=== PATIENT | male | born 1960 | race Caucasian/White ===

== ENCOUNTER 2017-04-16 15:35 | Inpatient (IN) | payer BC ==
[~2017-04-16] VITALS: Ht 180.3 cm; Wt 82.3 kg
[~2017-04-16 15:35] MED LIST: ACET325T45 PO; DOCU-159 PO; HYDR-3498 PO; IBUP-1542 PO; KETO10TA PO; TAMS-14 PO
[2017-04-16 16:00] VITALS: PULSE 66
[2017-04-16 16:12] VITALS: BP 149/101; RESP 18
[2017-04-16 16:15] VITALS: Ht 180.3 cm; Wt 82.3 kg
[2017-04-16] MEDS ORDERED: NACL 0.9% 3 ML SYG IV SCH (18:30)
[2017-04-16] MEDS ORDERED: ACETAMINOPHEN 325 MG TAB PO PRN (18:30)
[2017-04-16] MEDS ORDERED: IBUPROFEN 400 MG TAB PO PRN (19:30)
--- NOTE | 2017-04-16 19:32 | HP ---
Date/Time of Note Date/Time of Note DATE: 04/16/17 TIME: 19:18 Assessment/Plan VTE Prophylaxis VTE Prophylaxis Intervention: SCD's Lines/Catheters IV Catheter Type (from Nrs): Saline Lock Urinary Cath still in place: No Assessment/Plan Assessment/Plan 56 yo M presenting with 1 week of c/o headaches, generalized weakness (though no weakness on exam), dizziness. Workup at OSH ER unremarkable. D/dx includes viral syndrome v ear mediated process (?labyrinthitis?) v central process. PLAN MRI brain, MRA neck to eval for primary brain process consider LP if above nondiagnostic NSAIDs prn headache cont home flomax for BPH general diet check orthostatics cont tele SCDs/SQH HPI/ROS Admit Date/Time Admit Date/Time Apr 16, 2017 at 15:35 Hx of Present Illness 56 yo M with pmhx chronic back pain, R sided tinitus, h/o abd hernia presents with c/o 1 week of dizziness, generalized weakness, slowed thoughts. Pt reports symptoms came on gradually and have been progressively worsening. Over this interval has also noted occ jaw pain. Pt denies any fevers, chills, nausea, vomitting, constipation, night sweats, weight changes, or diarrhea. Reports that he's also been having bilateral frontal headaches. Has tried APAP at home to little avail. Reports symptoms are worsened with positional changes. Regarding the jaw pain pt localizes it mostly to his TMJs bl, and reports that sometimes the pain is associated with a strange taste in his mouth. Does not endorse vision changes. Pt also reports 4 years of R ear tinnitus with recent worsening ROS 10pROS neg except as per HPI PMH/Family/Social Past Medical History abd hernia BPH h/o kidney stone chronic back pain ?chronic bronchitis Social History Smoking Status: Current every day smoker Exam/Review of Systems Vital Signs Vitals Vital Signs Date Time Temp Pulse Resp B/P Pulse Ox O2 Delivery O2 Flow Rate FiO2 04/16/17 16:12 97.4 76 18 149/101 95 Exam Exam nad, laying in bed CN 2-12 intact bl 5/5 strength bl U and LEs, sensorium grossly intact, FNF nl bl MMM EOMI rrr no mrg abd soft lungs clear no le edema no rashes no nystagmus [place] Hallpike negative Medications Medications Current Medications Heparin Sodium (Porcine) (Heparin (5000 Units/0.5 ml)) 5,000 unit Q8 SC ; Start 04/16/17 at 22:00 Acetaminophen (Tylenol Tab) 325 mg Q4H PRN PO PAIN AND OR ELEVATED TEMP; Start 04/16/17 at 18:30 Docusate Sodium (Colace) 100 mg BID PO ; Start 04/16/17 at 21:00 Tamsulosin HCl (Flomax) 0.4 mg HS PO ; Start 04/16/17 at 21:00 Procedures Procedures OSH studies NCCT head: mp omtracranial process, +acute v chronic L mastoiditis EKG: NSR, rate 71 CXR nl CBC 6.7>15.3/43.8<276 INR 1.0 ChemP notable for glucose 107, Cr 0.9, TB 1.4, transaminases nl trop neg UA neg GAIL COLLIER MD Apr 16, 2017 19:28
[2017-04-16 20:00] VITALS: BP 169/97; RESP 20
[2017-04-16 20:11] VITALS: PULSE 66
[2017-04-16] MEDS: DOCUSATE SODIUM 100 MG CAP PO SCH (21:00)
[2017-04-16] MEDS: TAMSULOSIN (SR) 0.4 MG CAP PO SCH (21:00)
[2017-04-16] MEDS: HEPARIN 5,000 UNIT/0.5 ML VIAL SC SCH (21:56)
[2017-04-16] MEDS: ZOLPIDEM 5 MG TAB PO PRN (22:26)
[2017-04-17] VITALS (12 sets, daily range): BP systolic 124–150; BP diastolic 74–90; PULSE 59–91; RESP 15–20
[2017-04-17] MEDS: HEPARIN 5,000 UNIT/0.5 ML VIAL SC SCH ×3 (06:34→23:16)
[2017-04-17] MEDS: DOCUSATE SODIUM 100 MG CAP PO SCH ×2 (09:00→20:30)
--- NOTE | 2017-04-17 13:11 | PN ---
Date/Time of Note Date/Time of Note DATE: 04/17/17 TIME: 13:10 Assessment/Plan VTE Prophylaxis VTE Prophylaxis Intervention: SCD's Lines/Catheters IV Catheter Type (from [facility]): Saline Lock Urinary Cath still in place: No Assessment/Plan Assessment/Plan 56 yo M presenting with 1 week of c/o headaches, generalized weakness (though no weakness on exam), dizziness. Workup at OSH ER unremarkable. D/dx includes viral syndrome v ear mediated process (?labyrinthitis?) v central process. PLAN MRI brain, MRA neck to eval for primary brain process consider LP if above nondiagnostic NSAIDs prn headache cont home flomax for BPH general diet check orthostatics cont tele SCDs/SQH Subjective 24 Hr Interval Summary Free Text/Dictation Pt reports symptoms are unchanged. Exam/Review of Systems Vital Signs Vitals Vital Signs Date Time Temp Pulse Resp B/P Pulse Ox O2 Delivery O2 Flow Rate FiO2 04/17/17 12:18 68 04/17/17 11:23 98.5 18 131/85 97 Intake and Output 04/16/17 04/16/17 04/17/17 15:00 23:00 07:00 Intake Total 600 ml Balance 600 ml Exam nad laying in bed no mrg lungs clear abd soft no rashes Medications Medications Current Medications Heparin Sodium (Porcine) (Heparin (5000 Units/0.5 ml)) 5,000 unit Q8 SC Last administered on 04/17/17 06:34; Admin Dose 5,000 UNIT; Start 04/16/17 at 22:00 Acetaminophen (Tylenol Tab) 325 mg Q4H PRN PO PAIN AND OR ELEVATED TEMP; Start 04/16/17 at 18:30 Docusate Sodium (Colace) 100 mg BID PO ; Start 04/16/17 at 21:00 Tamsulosin HCl (Flomax) 0.4 mg HS PO ; Start 04/16/17 at 21:00 Ibuprofen (Motrin) 400 mg Q6H PRN PO PAIN OR TEMP ABOVE 38C Last administered on 04/16/17 19:53; Admin Dose 400 MG; Start 04/16/17 at 19:30 Zolpidem Tartrate (Ambien) 5 mg HS PRN PO INSOMNIA Last administered on 22:26; Admin Dose 5 MG; Start 04/16/17 at 22:00 GAIL COLILER MD Apr 17, 2017 13:11
[2017-04-17 15:34] LABS: CALCIUM 9.3 mg/dl (8.4-10.2); CREATININE 1.05 mg/dl (0.61-1.24); POTASSIUM 4.4 mmol/L (3.5-5.1)
[2017-04-17] MEDS: TAMSULOSIN (SR) 0.4 MG CAP PO SCH (20:31)
[2017-04-17] MEDS: ZOLPIDEM 5 MG TAB PO PRN (23:16)
[2017-04-18] VITALS (8 sets, daily range): BP systolic 128–139; BP diastolic 65–93; PULSE 59–68; RESP 15–20
[2017-04-18] MEDS: HEPARIN 5,000 UNIT/0.5 ML VIAL SC SCH ×3 (05:29→21:01)
[2017-04-18] MEDS ORDERED: ONDANSETRON 4 MG INJ IV PRN (07:00)
[2017-04-18] MEDS: DOCUSATE SODIUM 100 MG CAP PO SCH ×2 (08:44→20:59)
--- NOTE | 2017-04-18 09:36 | RADRPT ---
PROCEDURE: MR Brain with and without contrast. CLINICAL INDICATION: Vertigo COMPARISON: None TECHNIQUE: An MRI of the brain was performed on a GE short bore high-definition 1.5 ning scanner utilizing the following sequences: Sagittal T1 weighted, axial T2 weighted, axial FLAIR, coronal GRE , and axial diffusion weighted with ADC mapping. Additionally, postcontrast axial T1 3-D SPGR, axial and coronal T1-weighted sequences were performed after 10 cc of Magnevist were given intravenously without complication. FINDINGS: No diffusion weighted abnormalities are seen to suggest the presence of acute ischemia or recent inf arct. There is no intracranial hemorrhage, mass effect, or midline shift. No extra-axial fluid col lection is seen. The ventricles and sulci are normal in size and configuration. Scattered small fo ci of increased T2 weighted/FLAIR signal intensity are seen in the deep and subcortical white matter , nonspecific in appearance. The signal intensity is normal in the brain stem and cerebellum. Norm al flow voids are visible in the proximal intracranial arteries and dural sinuses, indicating patenc y. The postcontrast images show no abnormal parenchymal, leptomeningeal, or dural enhancement. The paranasal sinuses are grossly clear. IMPRESSION: 1. No evidence of acute intracranial pathology. 2. Scattered foci of increased T2 weighted/FLAIR signal intensity in the deep and subcortical white matter, nonspecific in appearance though perhaps reflective of complicated migraines, hypertensive microvascular ischemic disease, sequela from prior traumatic or inflammatory insults. RPTAT: BB .Suzanne Holden MD, Date Time Electronically viewed and signed by .Suzanne Holden MD, MD on 04/18/2017 09:35 .O/
--- NOTE | 2017-04-18 09:45 | RADRPT ---
PROCEDURE: MRA Neck with and without contrast. CLINICAL INDICATION: Vertigo TECHNIQUE: An MRA of the major cervical arteries was performed on the high ning scanner utilizing axial 2D time of flight, 3-D [id number] through the carotid bifurcations, and dynamic contrast enhanced 3-D MR angiography technique. Source and MIPPED images were reviewed. 10 cc of Magnevist w ere given intravenously without complication. COMPARISON: No prior studies are available for comparison. FINDINGS: The origins of the great vessels off the aortic arch are patent and normal in caliber. The common c arotid arteries are patent and normal in caliber. The carotid bulbs appear normal, and no hemodynam ically significant stenosis is evident within either internal carotid artery. The vertebral arterie s are patent and normal in caliber bilaterally. There is no evidence of vascular stenosis or occlus ion. IMPRESSION: Normal contrast enhanced MRA of the neck. RPTAT: BB .Suzanne Holden MD, MD Date Time Electronically viewed and signed by .Suzanne Holden MD, on 04/18/2017 09:45 .O/
[2017-04-18] MEDS ORDERED: LORAZEPAM 1 MG TAB PO SCH (12:00)
[2017-04-18] MEDS: MECLIZINE 25 MG TAB PO SCH ×2 (12:21→21:00)
[2017-04-18] MEDS: traMADol 50 MG TAB PO PRN ×2 (12:23→19:23)
--- NOTE | 2017-04-18 12:28 | PN ---
Date/Time of Note Date/Time of Note DATE: 04/18/17 TIME: 12:27 Assessment/Plan VTE Prophylaxis VTE Prophylaxis Intervention: SCD's Lines/Catheters IV Catheter Type (from Nrs): Saline Lock Urinary Cath still in place: No Assessment/Plan Assessment/Plan 56 yo M presenting with 1 week of c/o headaches, generalized weakness (though no weakness on exam), dizziness. Given floridly + [place] Hallpike with OT, most likely etio is BPPV. PLAN neurology on consult. OT to ask for CM help for outpatient Epleys NSAIDs prn headache cont home flomax for BPH general diet discontinue tele SCDs/SQH Subjective 24 Hr Interval Summary Free Text/Dictation I saw pt just after he was seen by OT. OT did formal [place]onna Hallpike testing and reports pt's test results were floridly positive. Pt quite anxious and still with many questions. Exam/Review of Systems Vital Signs Vitals Vital Signs Date Time Temp Pulse Resp B/P Pulse Ox O2 Delivery O2 Flow Rate FiO2 04/18/17 11:43 97.7 79 20 139/87 97 Intake and Output 04/17/17 04/17/17 04/18/17 15:00 23:00 07:00 Intake Total 1050 ml 600 ml Balance 1050 ml 600 ml Exam anxious, laying in bed no mrg lungs clear abd soft no rashes Neuroimaging reviewed. No masses or strokes, +microvascular changes Results Result Diagram: 04/17/17 1445 Results 24 hrs Laboratory Tests Test 04/17/17 14:45 Sodium Level 140 Potassium Level 4.4 Chloride Level 104 Carbon Dioxide Level 30 Anion Gap 10 Blood Urea Nitrogen 15 Creatinine 1.05 Glucose Level 96 Calcium Level 9.3 Medications Medications Current Medications Heparin Sodium (Porcine) (Heparin (5000 Units/0.5 ml)) 5,000 unit Q8 SC Last administered on 04/18/17 05:29; Admin Dose 5,000 UNIT; Start 04/16/17 at 22:00 Acetaminophen (Tylenol Tab) 325 mg Q4H PRN PO PAIN AND OR ELEVATED TEMP Last administered on 04/18/17 08:44; Admin Dose 325 MG; Start 04/16/17 at 18:30 Docusate Sodium (Colace) 100 mg BID PO Last administered on 04/18/17 08:44; Admin Dose 100 MG; Start 04/16/17 at 21:00 Tamsulosin HCl (Flomax) 0.4 mg HS PO ; Start 04/16/17 at 21:00 Ibuprofen (Motrin) 400 mg Q6H PRN PO PAIN OR TEMP ABOVE 38C Last administered on 04/16/17 19:53; Admin Dose 400 MG; Start 04/16/17 at 19:30 Zolpidem Tartrate (Ambien) 5 mg HS PRN PO INSOMNIA Last administered on 23:16; Admin Dose 5 MG; Start 04/16/17 at 22:00 Ondansetron HCl (Zofran Inj) 4 mg Q4H PRN IV NAUSEA AND/OR VOMITING; Start at 07:00 Meclizine HCl (Antivert) 25 mg TID PO Last administered on 04/18/17 12:21; Admin Dose 25 MG; Start 04/18/17 at 13:00 Lorazepam (Ativan) 2 mg OC PO ; Start 04/18/17 at 12:00; Stop 04/18/17 at 18:00 Tramadol HCl (Ultram) 50 mg TID PRN PO HEADACHE Last administered on 04/18/17 12:23; Admin Dose 50 MG; Start 04/18/17 at 12:00 GAIL COLLIER MD Apr 18, 2017 12:28
[2017-04-18] MEDS ORDERED: MECLIZINE 12.5 MG TAB PO SCH (13:00)
--- NOTE | 2017-04-18 17:59 | CONS ---
Date/Time of Note Date/Time of Note DATE: 04/18/17 TIME: 17:53 Assessment/Plan Assessment/Plan Chief Complaint/Hosp Course 56 yo male with history of chronic right ear tinnitus, p/w vertigo severe dizziness + Deonna-Hallpike suggestive of BPPV. Recommendations; reorder MRI w contrast to rule out possibility of schwannoma given right ear hearing loss chronic symptoms MRA Head without contrast to rule out possible dural venous fistula that may present with these symptoms increased Meclizine to standing 25 mg 8h encouraged hydration smoking cessation cleared by PT/OT outpatient OT and vestibular balance therapy if imaging negative may be discharged with meclizine and outpatient neurology follow up Problems: Consultation Date/Type/Reason Admit Date/Time Apr 16, 2017 at 15:35 Date of Consultation: Apr 18, 2017 Type of Consultation: Neurology Reason for Consultation vertigo Referring Provider: GAIL COLLIER MD Hx of Present Illness 56 yo male with history of active smoker 1/2 PPD, chronic tinnitus right ear p/ w c/o headaches, generalized weakness, jaw pain with dizziness intermittent worse with positional changes. MRI Brain and MRA Neck was negative for any acute processes. He describes worsening of sx over the past week, evaluated by OT with + [place]-Halpike maneuver. He denies any recent fevers or illness. 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, DTR's symmetric, nl mental status, nl speech, nl strength Results Result Diagram: 04/17/17 1445 Medications Medications Current Medications Heparin Sodium (Porcine) (Heparin (5000 Units/0.5 ml)) 5,000 unit Q8 SC Last administered on 04/18/17t 05:29; Admin Dose 5,000 UNIT; Start 04/16/17 at 22:00 Acetaminophen (Tylenol Tab) 325 mg Q4H PRN PO PAIN AND OR ELEVATED TEMP Last administered on 04/18/17 08:44; Admin Dose 325 MG; Start 04/16/17 at 18:30 Docusate Sodium (Colace) 100 mg BID PO Last administered on 04/18/17 08:44; Admin Dose 100 MG; Start 04/16/17 at 21:00 Tamsulosin HCl (Flomax) 0.4 mg HS PO ; Start 04/16/17 at 21:00 Ibuprofen (Motrin) 400 mg Q6H PRN PO PAIN OR TEMP ABOVE 38C Last administered on 04/16/17 19:53; Admin Dose 400 MG; Start 04/16/17 at 19:30 Zolpidem Tartrate (Ambien) 5 mg HS PRN PO INSOMNIA Last administered on 23:16; Admin Dose 5 MG; Start 04/16/17 at 22:00 Ondansetron HCl (Zofran Inj) 4 mg Q4H PRN IV NAUSEA AND/OR VOMITING; Start at 07:00 Meclizine HCl (Antivert) 25 mg TID PO Last administered on 04/18/17 12:21; Admin Dose 25 MG; Start 04/18/17 at 13:00 Lorazepam (Ativan) 2 mg OC PO ; Start 04/18/17 at 12:00; Stop 04/18/17 at 18:00 Tramadol HCl (Ultram) 50 mg TID PRN PO HEADACHE Last administered on 04/18/17 12:23; Admin Dose 50 MG; Start 04/18/17 at 12:00 MC POLLOCK MD Apr 18, 2017 17:59
[2017-04-18] MEDS: TAMSULOSIN (SR) 0.4 MG CAP PO SCH (21:00)
[2017-04-19] VITALS (7 sets, daily range): BP systolic 136–179; BP diastolic 78–115; RESP 18–20
[2017-04-19] MEDS ORDERED: PANTOPRAZOLE (EC) 40 MG TAB PO ONE (02:00)
[2017-04-19] MEDS ORDERED: AL HYDROX/MG HYDROX/SIMETH 30 ML CUP PO PRN (02:00)
[2017-04-19] MEDS: traMADol 50 MG TAB PO PRN (05:03)
[2017-04-19] MEDS ORDERED: PANTOPRAZOLE (EC) 40 MG TAB PO SCH (06:00)
[2017-04-19] MEDS: HEPARIN 5,000 UNIT/0.5 ML VIAL SC SCH (06:00)
[2017-04-19] MEDS ORDERED: LORAZEPAM 1 MG TAB PO SCH (06:00)
[2017-04-19] MEDS: MECLIZINE 25 MG TAB PO SCH ×3 (09:41→21:09)
[2017-04-19] MEDS: DOCUSATE SODIUM 100 MG CAP PO SCH ×2 (09:41→21:08)
--- NOTE | 2017-04-19 10:15 | PN ---
Date/Time of Note Date/Time of Note DATE: 04/19/17 TIME: 10:15 Assessment/Plan VTE Prophylaxis VTE Prophylaxis Intervention: SCD's Lines/Catheters IV Catheter Type (from Nrs): Saline Lock Urinary Cath still in place: No Assessment/Plan Assessment/Plan 56 yo M presenting with 1 week of c/o headaches, generalized weakness (though no weakness on exam), dizziness. Given floridly + [place] Hallpike with OT, most likely etio is BPPV. PLAN neurology on consult. will provide referral for outpatient PT/OT for Eplseys at discharge stopped home flomax per pt request general diet discontinue tele pt refusing SQH, risk of DVT dw pt will discharge home once f/u neuroimaging returns normal cont meclizine Subjective 24 Hr Interval Summary Free Text/Dictation Lots of questions about his medications Exam/Review of Systems Vital Signs Vitals Vital Signs Date Time Temp Pulse Resp B/P Pulse Ox O2 Delivery O2 Flow Rate FiO2 04/19/17 10:09 73 20 149/91 04/19/17 09:09 98.1 98 Intake and Output 04/18/17 04/18/17 04/19/17 15:00 23:00 07:00 Intake Total 1800 ml Balance 1800 ml Exam nad, very talkative laying in bed no mrg lungs clear abd soft no le edema Results Result Diagram: 04/17/17 1445 Medications Medications Current Medications Docusate Sodium (Colace) 100 mg BID PO Last administered on 04/19/17 09:41; Admin Dose 100 MG; Start 04/16/17 at 21:00 Meclizine HCl (Antivert) 25 mg TID PO Last administered on 04/19/17 09:41; Admin Dose 25 MG; Start 04/18/17 at 13:00 Tramadol HCl (Ultram) 50 mg TID PRN PO HEADACHE Last administered on 04/19/17 05:03; Admin Dose 50 MG; Start 04/18/17 at 12:00 Lorazepam (Ativan) 2 mg OC PO ; Start 04/19/17 at 06:00; Stop 04/19/17 at 22:00 GAIL COLLIER MD Apr 19, 2017 10:15
[2017-04-20 07:42] VITALS: BP 134/84; RESP 18
--- NOTE | 2017-04-20 08:40 | RADRPT ---
PROCEDURE: MRA brain without contrast CLINICAL INDICATION: Vertigo TECHNIQUE: 3-D [id number] intracranial MRA was performed on a 3.0T scanner. Rotational MIP param ges were reformatted. The source images were also reviewed. COMPARISON: MRI brain 04/17/2017 FINDINGS: The bilateral internal carotid arteries, and the bilateral middle and anterior cerebral arteries are patent and normal in caliber. The bilateral vertebral arteries, basilar artery, as well as the kristen ateral posterior cerebral arteries are patent and normal in caliber. No aneurysm or vascular malfor mation is identified. IMPRESSION: Unremarkable MRA of the brain. RPTAT: HH .Danie Sousa MD, MD Date Time Electronically viewed and signed by .Danie Sousa MD, on 04/20/2017 08:40 .O/
--- NOTE | 2017-04-20 08:44 | RADRPT ---
PROCEDURE: MRV brain without contrast CLINICAL INDICATION: Vertigo TECHNIQUE: 2D [id number] intracranial MRV was performed on a 3.0T scanner. Rotational MIP imag es were reformatted. The source images were also reviewed. COMPARISON: MRA brain 04/19/2017, MRI brain 04/17/2017 FINDINGS: The superior sagittal sinus, bilateral transverse and sigmoid sinuses and jugular bulbs appear paten t. Right transverse sinus is dominant. Bilateral internal cerebral veins, vein of Jorge Luis and straig ht sinus are visualized and are patent. Visualized major cortical veins are patent. No findings to suggest vascular malformation are seen. IMPRESSION: Unremarkable MRV of the brain. RPTAT: HH .Danie Sousa MD, MD Date Time Electronically viewed and signed by .Danie Sousa MD, on 04/20/2017 08:44 .O/
[2017-04-20] MEDS: MECLIZINE 25 MG TAB PO SCH (08:51)
[2017-04-20] MEDS: DOCUSATE SODIUM 100 MG CAP PO SCH (08:51)
[2017-04-20] MEDS: traMADol 50 MG TAB PO PRN (08:53)
--- NOTE | 2017-04-20 09:05 | PDOCDIS ---
Discharge Instructions DIAGNOSIS Discharge Diagnosis: BPPV: Benign paroxysmal positional vertigo CONDITION Patient Condition: Good HOME CARE INSTRUCTIONS: Special Diet: REGULAR DIET ACTIVITY: Activity Restrictions: Slowly Increase Activity FOLLOW UP/APPOINTMENTS Appointments Please bring your physical therapy prescription to your primary care physician to try to get PT near your home GAIL COLLIER MD Apr 20, 2017 09:05
[2017-04-20] MEDS ORDERED: MECL-77 PO (09:07)
--- NOTE | 2017-04-20 09:09 | DS ---
Date/Time of Note Date/Time of Note DATE: 04/20/17 TIME: 09:09 Discharge Summary Admission/Discharge Info Admit Date/Time Apr 16, 2017 at 15:35 Discharge Date/Time Final Diagnosis BPPV/Benign paroxysmal positional vertigo Patient Condition: Good Consults neurology Procedures 6.14 MRA neck: Normal contrast enhanced MRA of the neck. MRI Brain: 1. No evidence of acute intracranial pathology. 2. Scattered foci of increased T2 weighted/FLAIR signal intensity in the deep and subcortical white matter, nonspecific in appearance though perhaps reflective of complicated migraines, hypertensive microvascular ischemic disease, sequela from prior traumatic or inflammatory insults. 6.16: MRV brain and MRA brain: unremarkable Hx of Present Illness 56 yo M with pmhx chronic back pain, R sided tinitus, h/o abd hernia presents with c/o 1 week of dizziness, generalized weakness, slowed thoughts. Pt reports symptoms came on gradually and have been progressively worsening. Over this interval has also noted occ jaw pain. Pt denies any fevers, chills, nausea, vomitting, constipation, night sweats, weight changes, or diarrhea. Reports that he's also been having bilateral frontal headaches. Has tried APAP at home to little avail. Reports symptoms are worsened with positional changes. Regarding the jaw pain pt localizes it mostly to his TMJs bl, and reports that sometimes the pain is associated with a strange taste in his mouth. Does not endorse vision changes. Pt also reports 4 years of R ear tinnitus with recent worsening Hospital Course 56 yo male with history of chronic right ear tinnitus, p/w vertigo severe dizziness. Pt seen by OT 6.15, had formal Deonna Hallpike done which was floridly positive, consistent with diagnosis of BPPV. Neuro imaging without evidence of Schwanomma (done given c/o R sided tinitus) or dural venous fistula. Pt discharge with PRN meclizine and Rx for PT for Zenaida teaching. Home Meds Active Scripts Meclizine Hcl* (Meclizine Hcl*) 25 Mg Tablet, 25 MG PO Q8H Y for DIZZINESS for 10 Days, #30 TAB Prov:GAIL COLLIER MD 04/20/17 Reported Medications Tamsulosin Hcl* (Flomax*) 0.4 Mg Cap.er.24h, 0.4 MG PO HS, CAP 01/18/15 Ibuprofen* (Ibuprofen*) 600 Mg Tablet, 600 MG PO Q6H, TAB 01/18/15 Hydrocodone Bit-Acetaminophen* (Walker*) 5-325 Mg Tab, 1 TAB PO Q4H Y for PAIN, TAB 01/18/15 Acetaminophen* (Acetaminophen*) 325 Mg Tablet, 325 MG PO Q4H Y for PAIN AND OR ELEVATED TEMP, TAB 01/18/15 Docusate Sodium* (Docusate Sodium*) 100 Mg Capsule, 100 MG PO BID, CAP 01/18/15 Ketorolac Tromethamine* (Ketorolac Tromethamine*) 10 Mg Tablet, 10 MG PO Q6H Y for PAIN, TAB 01/18/15 Follow-up Plan PCP within 7 days to set up outpatient PT for Epleys Primary Care Provider Akhil Bond Time spent on discharge: > 30 minutes GAIL COLLIER MD Apr 20, 2017 09:09
== END 2017-04-20 10:35 | disposition home or self-care (01) | DRG 149 ==
LOC: TEL 15:35 → MS2 04-19 04:29
PROVIDERS: ADMIT Family Medicine; ATTEND Family Medicine
DX: H81.11 Benign paroxysmal vertigo, right ear (principal); H93.11 Tinnitus, right ear; N40.0 Benign prostatic hyperplasia without lower urinary tract symptoms; H91.91 Unspecified hearing loss, right ear
CPT/HCPCS: 70544; 70549; 70553; 80048; 97162; 97166; J1644; J2405

== ENCOUNTER 2017-11-28 13:15 | Day surgery (SDC) | END 2017-11-28 15:55 | disposition home or self-care (01) ==

== ENCOUNTER 2018-01-11 08:49 | Inpatient (IN) | END 2018-01-15 12:55 | disposition home or self-care (01) | DRG 392 ==